=== PATIENT | male | born 1990 | race Caucasian/White ===

== ENCOUNTER 2022-04-11 20:41 | Emergency (ER) | payer SELFPAY ==
[~2022-04-11] VITALS: Ht 175.2 cm; Wt 88.2 kg
[~2022-04-11 20:41] MED LIST: AGM875T PO; HYDR-3583 PO; HYDR-4226 PO; HYDR1TAB66 PO; OXYC-12 PO; SULF1TAB38 PO; TMSL.4C PO
[2022-04-11 21:01] VITALS: BP 168/105
--- NOTE | 2022-04-11 21:04 | ED Psychosocial ---
General Chief Complaint: Psych/Social Disorder Stated Complaint: HEALTH SCREENING Source: patient Exam Limitations: no limitations ([facility]) History of Present Illness Date Seen by Provider: Apr 11, 2022 Time Seen by Provider: 21:01 Initial Comments Patient is a 31-year-old female presents ED with auditory and visual hallucinations. Patient states these hallucinations have been ongoing for several years and worse over the past few days. Patient wound not provide detail or description of these hallucinations.. He states he has been treated in the past with medication but states this did not help. Patient states he feels anxious at this time and concern for panic attack. Patient denies of any suicidal homicidal thoughts. Reports marijuana use. Denies any other drug use or alcohol use. Patient does not follow-up with behavioral health or psychiatrist. Patient provided limited history. Denies of any current active hallucinations. ([facility]) Allergies and Home Medications Allergies Coded Allergies: No Known Drug Allergies (Unverified , 06/08/18) Patient Home Medication List Home Medication List Reviewed: Yes ([facility]) Hydrocodone Bit/Acetaminophen (Hydrocodon-Acetaminophen 5-500) 1 Each Tablet, 1 EACH PO PRN Prescribed by: YARITZA GIRALDO on 09/03/102153 Hydrocodone/Acetaminophen (Hydrocodone/Acetaminophen 5 MG/325 MG TAB) 1 Each Tablet, 1 EACH PO Q4H PRN for PAIN-MODERATE TO SEVERE Prescribed by: RAJAT SMITH on 06/08/182046 Sulfamethoxazole/Trimethoprim (Bactrim Ds Tablet) 1 Each Tablet, 1 EACH PO BID Prescribed by: RAJAT SMITH on 06/08/182046 Tamsulosin HCl (Flomax) 0.4 Mg Cap, 0.4 MG PO DAILY Prescribed by: RAJAT SMITH on 06/08/182046 Review of Systems Constitutional: No chills, No diaphoresis, No dizziness, No fever, No malaise, No weakness EENTM: No hearing loss, No ear pain, No blurred vision, No double vision, No dental problems, No mouth pain, No mouth swelling Respiratory: No cough Cardiovascular: No chest pain Gastrointestinal: No abdominal pain, No diarrhea, No nausea, No vomiting Genitourinary: No decreased output, No discharge Musculoskeletal: No back pain, No joint pain Skin: No change in color, No change in hair/nails ([facility]) All Other Systems Reviewed Negative Unless Noted: Yes ([facility]) Past Mxnmnkw-Reljdr-Zvntyz Hx Immunizations Up To Date Tetanus Booster (TDap): Unknown ([facility]) Seasonal Allergies Seasonal Allergies: No ([facility]) Past Medical History Surgeries: No Respiratory: No Cardiac: No Neurological: No Genitourinary: No Musculoskeletal: No Endocrine: No HEENT: No Cancer: No Psychosocial: Yes Anxiety, Depression Integumentary: No Blood Disorders: No ([facility]) Physical Exam Vital Signs - First Documented 04/11/22 21:01 Temp 36.4 Pulse 101 Resp 20 B/P (MAP) 168/105 (126) Pulse Ox 98 O2 Delivery Room Air (JOY,FELICIA K DO) Capillary Refill : ([facility]) Height, Weight, BMI Height: 5'9.00" Weight: 165lbs. oz. 74.875807nj; BMI Method:Stated General Appearance: WD/WN, no apparent distress HEENT: PERRL/EOMI, normal ENT inspection, TMs normal, pharynx normal Neck: non-tender, full range of motion, supple Respiratory: chest non-tender, lungs clear, normal breath sounds, no respiratory distress, no accessory muscle use Cardiovascular: regular rate, rhythm, no edema, no gallop Gastrointestinal: normal bowel sounds, non tender, soft Extremities: normal range of motion, non-tender, normal inspection Neurologic/Psychiatric: credit consultant II-XII nml as tested, no motor/sensory deficits, alert, normal mood/affect, oriented x 3 Thoughts/Hallucinations: auditory hallucinations, visual hallucinations Skin: normal color, warm/dry ([facility]) Progress/Results/Core Measures Results/Orders Lab Results Laboratory Tests Test 04/11/22 21:14 04/11/22 21:30 Range/Units White Blood Count 17.2 H 4.3-11.0 10^3/uL Red Blood Count 5.21 4.30-5.52 10^6/uL Hemoglobin 15.8 13.3-17.7 g/dL Hematocrit 45 40-54 % Mean Corpuscular Volume 86 80-99 fL Mean Corpuscular Hemoglobin 30 25-34 pg Mean Corpuscular Hemoglobin Concent 35 32-36 g/dL Red Cell Distribution Width 11.7 10.0-14.5 % Platelet Count 342 130-400 10^3/uL Mean Platelet Volume 9.3 9.0-12.2 fL Immature Granulocyte % (Auto) 0 % Neutrophils (%) (Auto) 77 H 42-75 % Lymphocytes (%) (Auto) 16 12-44 % Monocytes (%) (Auto) 5 0-12 % Eosinophils (%) (Auto) 0 0-10 % Basophils (%) (Auto) 1 0-10 % Neutrophils # (Auto) 13.2 H 1.8-7.8 10^3/uL Lymphocytes # (Auto) 2.8 1.0-4.0 10^3/uL Monocytes # (Auto) 0.9 0.0-1.0 10^3/uL Eosinophils # (Auto) 0.1 0.0-0.3 10^3/uL Basophils # (Auto) 0.1 0.0-0.1 10^3/uL Immature Granulocyte # (Auto) 0.1 0.0-0.1 10^3/uL Neutrophils % (Manual) 75 % Lymphocytes % (Manual) 13 % Monocytes % (Manual) 12 % Blood Morphology Comment NORMAL Sodium Level 138 135-145 MMOL/L Potassium Level 3.4 L 3.6-5.0 MMOL/L Chloride Level 104 98-107 MMOL/L Carbon Dioxide Level 20 L 21-32 MMOL/L Anion Gap 14 5-14 MMOL/L Blood Urea Nitrogen 17 7-18 MG/DL Creatinine 1.29 0.60-1.30 MG/DL Estimat Glomerular Filtration Rate 76 BUN/Creatinine Ratio 13 Glucose Level 111 H 70-105 MG/DL Calcium Level 10.0 8.5-10.1 MG/DL Corrected Calcium 8.5-10.1 MG/DL Total Bilirubin 0.9 0.1-1.0 MG/DL Aspartate Amino Transf (AST/SGOT) 17 5-34 U/L Alanine Aminotransferase (ALT/SGPT) 18 0-55 U/L Alkaline Phosphatase 71 40-136 U/L Total Protein 8.4 H 6.4-8.2 GM/DL Albumin 5.1 H 3.2-4.5 GM/DL Salicylates Level < 5.0 L 5.0-20.0 MG/DL Acetaminophen Level < 10 L 10-30 UG/ML Serum Alcohol < 10 <10 MG/DL Influenza Type A (RT-PCR) Not Detected Not Detecte Influenza Type B (RT-PCR) Not Detected Not Detecte SARS-CoV-2 RNA (RT-PCR) Not Detected Not Detecte Urine Color YELLOW Urine Clarity CLEAR Urine pH 6.0 5-9 Urine Specific [place] <=1.005 1.016-1.022 Urine Protein NEGATIVE NEGATIVE Urine Glucose (UA) NEGATIVE NEGATIVE Urine Ketones NEGATIVE NEGATIVE Urine Nitrite NEGATIVE NEGATIVE Urine Bilirubin NEGATIVE NEGATIVE Urine Urobilinogen 0.2 < = 1.0 MG/DL Urine Leukocyte Esterase NEGATIVE NEGATIVE Urine RBC (Auto) NEGATIVE NEGATIVE Urine RBC NONE /HPF Urine WBC NONE /HPF Urine Squamous Epithelial Cells NONE /HPF Urine Renal Epithelial Cells NONE /HPF Urine Crystals NONE /LPF Urine Bacteria NEGATIVE /HPF Urine Casts NONE /LPF Urine Mucus NEGATIVE /LPF Urine Culture Indicated NO Urine Opiates Screen NEGATIVE NEGATIVE Urine Oxycodone Screen NEGATIVE NEGATIVE Urine Methadone Screen NEGATIVE NEGATIVE Urine Propoxyphene Screen NEGATIVE NEGATIVE Urine Barbiturates Screen NEGATIVE NEGATIVE Ur Tricyclic Antidepressants Screen NEGATIVE NEGATIVE Urine Phencyclidine Screen NEGATIVE NEGATIVE Urine Amphetamines Screen NEGATIVE NEGATIVE Urine Methamphetamines Screen NEGATIVE NEGATIVE Urine Benzodiazepines Screen NEGATIVE NEGATIVE Urine Cocaine Screen NEGATIVE NEGATIVE Urine Cannabinoids Screen POSITIVE H NEGATIVE (FELICIA TOUSSAINT DO) Vital Signs/I&O 04/11/22 21:01 Temp 36.4 Pulse 101 Resp 20 B/P (MAP) 168/105 (126) Pulse Ox 98 O2 Delivery Room Air (FELICIA TOUSSAINT DO) Progress Progress Note : Progress Note 2299--ASSUMED CARE OF PT FROM [facility]. PT IS CURRENTLY DOING A MENTAL HEALTH SCREEN BY TELE-VISIT. 29--TELE-HEALTH VISIT WITH MENTAL HEALTH SCREENER JUST COMPLETED. (FELICIA TOUSSAINT DO) Comment Sinus tachycardia, 100 bpm, QRS duration 94 MS, QTc 396 MS ([facility]) Departure Communication (Admissions) 30--SPOKE WITH MENTAL HEALTH SCREENER, PLAN IS FOR PT TO GO HOME WITH SAFETY PLAN AND OUTPATIENT FOLLOW UP. PT WAS / IS AGREEABLE TO THIS PLAN AND WANTS TO GO HOME. NO SUICIDAL IDEATIONS AT ANY TIME (FELICIA TOUSSAINT DO) Communication (PCP) Patient presents to ED with hallucinations. Patient did not provide detail of these hallucinations. no suicidal or homicidal thoughts. Patient has been cooperative. Hallucinations for several months. It was previously on medication but not currently taking medication. Requesting behavioral health assessment. No recent inpatient. Patient lab work was otherwise unremarkable. Patient is medically cleared. Positive for marijuana. Did have a white blood count of 17 nonspecific. No focal neural deficits. No active hallucinations. Denies severe headache. No meningeal signs. Recommend reevaluation. No recent URI symptoms. Has no abdominal pain, cough sore throat ear pain, vomiting or diarrhea to suggest an infectious etiology. Denies of any alcohol which was negative. Patient will be medically screened. Discussed patient with Dr. Toussaint who took over care at 11:59 PM and provide disposition. Patient was awaiting evaluation by behavioral health. ([facility]) Impression Primary Impression: Hallucinations Additional Impressions: Marijuana use CHRONIC HALLUCINATIONS Disposition: 01 HOME, SELF-CARE Condition: Stable Departure-Patient Inst. Decision time for Depature: 00:35 (FELICIA TOUSSAINT DO) Referrals: [facility] (PCP/Family) Primary Care Physician Patient Instructions: Acute Psychosis (DC) Add. Discharge Instructions: FOLLOW UP WITH MENTAL HEALTH ARRANGED BY MENTAL HEALTH SCREENER, AND FOLLOW SAFETY PLAN THAT HAS BEEN SET UP. All discharge instructions reviewed with patient and/or family. Voiced understanding. [facility] Apr 11, 2022 21:04 FELICIA TOUSSAINT DO Apr 12, 2022 00:38
[2022-04-11 21:17] LABS: BASOPHILS # (AUTO) 0.1 10^3/uL (0.0-0.1); BASOPHILS % (AUTO) 1 % (0-10); EOSINOPHILS # (AUTO) 0.1 10^3/uL (0.0-0.3); EOSINOPHILS % (AUTO) 0 % (0-10); HEMATOCRIT 45 % (40-54); HEMOGLOBIN 15.8 g/dL (13.3-17.7); LYMPHOCYTES # (AUTO) 2.8 10^3/uL (1.0-4.0); LYMPHOCYTES % (AUTO) 16 % (12-44); MEAN CORPUSCULAR HEMOGLOBIN 30 pg (25-34); MEAN CORPUSCULAR HGB CONC 35 g/dL (32-36); MEAN CORPUSCULAR VOLUME 86 fL (80-99); MEAN PLATELET VOLUME 9.3 fL (9.0-12.2); MONOCYTES # (AUTO) 0.9 10^3/uL (0.0-1.0); MONOCYTES % (AUTO) 5 % (0-12); NEUTROPHILS # (AUTO) 13.2 10^3/uL (1.8-7.8); NEUTROPHILS % (AUTO) 77 % (42-75); PLATELET COUNT 342 10^3/uL (130-400); WHITE BLOOD COUNT 17.2 10^3/uL (4.3-11.0)
[2022-04-11 21:28] LABS: CHLORIDE 104 MMOL/L (98-107); POTASSIUM 3.4 MMOL/L (3.6-5.0); SODIUM 138 MMOL/L (135-145)
[2022-04-11 21:29] LABS: ALBUMIN 5.1 GM/DL (3.2-4.5)
[2022-04-11 21:30] LABS: LYMPHOCYTES % (MANUAL) 13 %; MONOCYTES % (MANUAL) 12 %; NEUTROPHILS % (MANUAL) 75 %; RBC MORPH NORMAL
[2022-04-11 21:31] LABS: GLUCOSE 111 MG/DL (70-105); TOTAL PROTEIN 8.4 GM/DL (6.4-8.2)
[2022-04-11 21:32] LABS: CARBON DIOXIDE 20 MMOL/L (21-32)
[2022-04-11 21:33] LABS: BILIRUBIN,TOTAL 0.9 MG/DL (0.1-1.0)
[2022-04-11 21:33] LABS: BILIRUBIN,URINE NEGATIVE (NEGATIVE); CLARITY,URINE CLEAR; COLOR,URINE YELLOW; GLUCOSE, URINE (UA) NEGATIVE (NEGATIVE); KETONES,URINE NEGATIVE (NEGATIVE); LEUKOCYTE ESTERASE ,URINE NEGATIVE (NEGATIVE); NITRITE,URINE NEGATIVE (NEGATIVE); PROTEIN,URINE NEGATIVE (NEGATIVE)
[2022-04-11 21:35] LABS: ALKALINE PHOSPHATASE 71 U/L (40-136); CREATININE SERUM 1.29 MG/DL (0.60-1.30); GFR ESTIMATED 76
[2022-04-11 21:36] LABS: BUN/CREATININE RATIO 13
[2022-04-11 21:37] LABS: ACETAMINOPHEN < 10 UG/ML (10-30)
[2022-04-11 21:38] LABS: ALANINE AMINOTRANSFERASE 18 U/L (0-55); SALICYLATE < 5.0 MG/DL (5.0-20.0)
[2022-04-11 21:39] LABS: BACTERIA,URINE NEGATIVE /HPF
[2022-04-11 21:44] LABS: AMPHETAMINE SCREEN, URINE NEGATIVE (NEGATIVE); BARBITURATE SCREEN URINE NEGATIVE (NEGATIVE); BENZODIAZEPINES SCREEN URINE NEGATIVE (NEGATIVE); CANNABINOID SCREEN, URINE POSITIVE (NEGATIVE); COCAINE SCREEN URINE NEGATIVE (NEGATIVE); METHADONE STAT NEGATIVE (NEGATIVE); OPIATE SCREEN URINE NEGATIVE (NEGATIVE); OXYCODONE STAT NEGATIVE (NEGATIVE); PROPOXYPHENE STAT NEGATIVE (NEGATIVE); TRICYCLIC ANTIDEPRESSANTS SCRE NEGATIVE (NEGATIVE)
== END 2022-04-12 01:00 | disposition home or self-care (01) ==
LOC: EDUNIT# 20:41 → ER 20:43
DX: F15.90 Other stimulant use, unspecified, uncomplicated (principal); R44.3 Hallucinations, unspecified
CPT/HCPCS: 80053; 80306; 81000; 85007; 85027; 87636; 93005; 99283; G0480 ×3; 36415; 80320; 80329